=== PATIENT | male | born 1990 | race Caucasian/White ===

== ENCOUNTER 2018-11-30 09:18 | Emergency (ER) | payer MEDICAID ==
[~2018-11-30] VITALS: Ht 182.9 cm; Wt 89.5 kg
[2018-11-30 09:27] VITALS: BP 123/77
== END 2018-11-30 10:15 | disposition home or self-care (01) ==
LOC: ED 10:00
DX: K02.9 Dental caries, unspecified (principal); Z87.01 Personal history of pneumonia (recurrent)
CPT/HCPCS: 99283